=== PATIENT | female | born 1960 | race Caucasian/White ===

== ENCOUNTER 2016-06-30 14:50 | Emergency (ER) | payer OTHER ==
[~2016-06-30] VITALS: Ht 162.6 cm; Wt 80.0 kg
[~2016-06-30 14:50] MED LIST: CEPH500 PO; PROM25R PR; Z.0.NO CURRENT MEDS; ZOFR4TAB3 SL
[2016-06-30 14:52] VITALS: BP 178/88; PULSE 64; RESP 14; TEMP 98.4; O2SAT 100
--- NOTE | 2016-06-30 15:09 | PD ---
HPI Chief Complaint: Headache Time Seen by Provider: 15:09 Travel History International Travel<30 days: No Contact w/Intl Traveler<30days: No Traveled to known affect area: No History of Present Illness HPI 55-year-old female presents to the emergency department for evaluation of head injury. Patient states she was at work and sat down in a rolling chair and the chair came out from under her causing her to fall backward hitting the back of her head on a metal door handle. She denies loss of consciousness. Complains of headache and lightheadedness. Denies any vision changes, vision loss, nausea , vomiting, numbness or tingling, weakness. Denies any anticoagulation. States that she also has some soreness in her lower back from the fall. No prior treatment. No other complaints. PFSH Past Medical History Hx Anticoagulant Therapy: No Cancer: No Diabetes: No Glaucoma: No Hepatitis: No Hiatal Hernia: No Hypertension: Yes Thyroid Disease: No Past Surgical History Abdominal Surgery: No Cardiac Surgery: No Ear Surgery: No Endocrine Surgery: No Eye Surgery: Yes (UPPER BLEPHAROPLASTY) Genitourinary Surgery: No Gynecologic Surgery: Yes (ENDOMETRIAL ABLATION) Oral Surgery: Yes (TONSILLECTOMY ) Pacemaker: No Thoracic Surgery: No Tonsillectomy: Yes Other Surgery: Yes (BREAST AUGMENTATION) Social History Alcohol Use: No Tobacco Use: No Substance Use: No Allergies-Medications (Allergen,Severity, Reaction): Coded Allergies: Lortab (Verified Allergy, Mild, Nausea/Vomiting, 06/30/16) Reported Meds & Prescriptions Reported Meds & Active Scripts Active Reported Ambien (Zolpidem Tartrate) 10 Mg Tab 10 Mg PO HS PRN Vitamin D (Ergocalciferol) 50,000 Unit Cap 50,000 Units PO Q7D Simvastatin 40 Mg Tab 40 Mg PO HS Amlodipine (Amlodipine Besylate) 10 Mg Tab 10 Mg PO DAILY Review of Systems Except as stated in HPI: all other systems reviewed are Neg Physical Exam Narrative GENERAL: Well-nourished and well-developed pleasant female patient in no acute distress. SKIN: No obvious lacerations or abrasions noted. HEAD: Normocephalic and atraumatic. There is a contusion to the right posterior aspect of the scalp with tenderness to palpation. EYES: No scleral icterus, injection, or drainage. PERRLA. EOMI. No hyphema present. ENT: No septal hematoma or hemotympanum noted. Oropharynx is clear and the airway is patent. NECK: Supple and the trachea is midline. No obvious deformities, crepitus, or midline tenderness noted. CARDIOVASCULAR: Regular rate and rhythm. RESPIRATORY: Breath sounds are equal bilaterally with no accessory muscle use, wheezing, rhonchi, or crackles. MUSCULOSKELETAL: No obvious deformities, swelling, cyanosis, or ecchymosis is present throughout the upper and lower extremities. Patient has full range of motion without any signs of neurovascular compromise. Strength 5/5 upper and lower extremities equal bilaterally. BACK: No obvious deformities. Mild bilateral lumbosacral tenderness to palpation. No midline bony point tenderness. NEUROLOGICAL: Awake, alert, and oriented. Normal speech and gait. Cranial nerves are grossly intact. Data Data Last Documented VS Vital Signs Date Time Temp Pulse Resp B/P Pulse Ox O2 Delivery O2 Flow Rate FiO2 06/30/16 14:52 98.4 64 14 178/[address] Brain W/O Iv Contrast(Rout) (06/30/16 15:08) Acetaminophen (Tylenol) (06/30/16 15:15) MDM Medical Decision Making Medical Screen Exam Complete: Yes Emergency Medical Condition: Yes Differential Diagnosis Minor head injury versus scalp contusion versus concussion versus intracranial hemorrhage Narrative Course 55-year-old female presents to the emergency department for evaluation of head injury status post mechanical fall. Patient is afebrile, vital signs are stable. No loss of consciousness. No focal neurologic deficits. Head CT has been ordered and is pending. Patient is ordered 1 gram of Tylenol. Head CT is negative. Patient has remained stable and without complaint while here in the emergency department. Discussed supportive care with the patient and when to return to the emergency department. Advised to follow-up with her PCP. Patient verbalizes understanding and agreement with treatment plan. Diagnosis Primary Impression: Scalp contusion Additional Impressions: Acute low back pain Qualified Code: M54.5 - Acute bilateral low back pain without sciatica Fall Qualified Code: W19.XXXA - Fall, initial encounter Referrals: Primary Care Physician Patient Instructions: General Instructions, Scalp Contusion in Adults (ED) Departure Forms: Tests/Procedures, Work Release Enter return to work date: Jul 02, 2016 Additional Instructions: Apply ice for 20 minutes on, 20 minutes off. Take medication as prescribed with food and a full glass of water. Follow-up with your Primary Care Physician as needed. Return to the ED for any acute worsening of symptoms. Med/Other Pt SpecificInfo: Prescription(s) given Disposition: 01 DISCHARGE HOME Condition: Stable Princess Alfaro Jun 30, 2016 15:09
[2016-06-30] MEDS ORDERED: ACETAMINOPHEN 500 MG CPLT PO ONE (15:15)
[2016-06-30] MEDS ORDERED: AMBI10TA PO (15:32)
[2016-06-30] MEDS ORDERED: AMLO10TA2 PO (15:32)
[2016-06-30] MEDS ORDERED: ERGO1CAP10 PO (15:32)
[2016-06-30] MEDS ORDERED: SIMV40TA PO (15:32)
--- NOTE | 2016-06-30 15:42 | RADRPT ---
EXAM DATE/TIME: 06/30/2016 15:33 [facility] COMPARISON: No previous studies available for comparison. INDICATIONS : Head trauma and headache. No LOC. RADIATION DOSE: 56.35 CTDIvol (mGy) MEDICAL HISTORY : None SURGICAL HISTORY : None. ENCOUNTER: Initial ACUITY: 1 day PAIN SCALE: 7/10 LOCATION: cranial TECHNIQUE: Multiple contiguous axial images were obtained of the head. Using automated exposure control and adj ustment of the mA and/or kV according to patient size, radiation dose was kept as low as reasonably a chievable to obtain optimal diagnostic quality images. FINDINGS: CEREBRUM: The ventricles are normal for age. No evidence of midline shift, mass lesion, hemorrhage or acute in farction. No extra-axial fluid collections are seen. POSTERIOR FOSSA: The cerebellum and brainstem are intact. The 4th ventricle is midline. The cerebellopontine angle i s unremarkable. EXTRACRANIAL: The visualized portion of the orbits is intact. SKULL: The calvaria is intact. No evidence of skull fracture. CONCLUSION: Normal examination. Orly Cruz MD on June 30, 2016 at 15:40 Board Certified Radiologist. This report was verified electronically.
[2016-06-30] MEDS ORDERED: NAPR500T PO (15:51)
== END 2016-06-30 16:25 | disposition home or self-care (01) ==
LOC: NETRI 14:50
DX: S00.03XA Contusion of scalp, initial encounter (principal); M54.5 Low back pain; W07.XXXA Fall from chair, initial encounter
CPT/HCPCS: 70450